=== PATIENT | female | born 1960 | race Caucasian/White ===

== ENCOUNTER 2018-06-03 16:13 | Inpatient (IN) | payer BC ==
[~2018-06-03] VITALS: Ht 167.6 cm; Wt 102.1 kg
[~2018-06-03 16:13] MED LIST: ASPI81TA31 PO; ATOR20TA PO; Acetaminophen PO; Glipizide PO; LEVO137T24 PO; LOSA1TAB39 PO; Metformin Hcl PO; SITA50TA PO
[2018-06-03] MEDS ORDERED: CARVEDILOL 12.5 MG TABLET (16:33)
[2018-06-03] MEDS ORDERED: LEVOTHYROXINE 100 MCG TABLET (16:33)
[2018-06-03] MEDS ORDERED: GLIPIZIDE 5 MG TABLET (16:33)
[2018-06-03] MEDS ORDERED: PANT40TA4 PO (16:33)
[2018-06-03] MEDS ORDERED: GLIP10TA11 PO (16:33)
[2018-06-03] MEDS ORDERED: REPA1TAB PO (16:33)
[2018-06-03] MEDS ORDERED: METF850T PO (16:36)
[2018-06-03] MEDS ORDERED: CLONIDINE HCL 0.2 MG TABLET PO ONE (17:00)
[2018-06-03 17:06] LABS: BASOPHILS # (AUTO) 0.1 K/uL (0.0-8.0); BASOPHILS % (AUTO) 0.8 % (0.0-2.0); EOSINOPHILS # (AUTO) 0.3 K/uL (0.0-0.7); EOSINOPHILS % (AUTO) 3.2 % (0.0-7.0); HEMATOCRIT 38.2 % (31.2-41.9); HEMOGLOBIN 12.9 g/dL (10.9-14.3); LYMPHOCYTES # (AUTO) 3.3 K/uL (20.0-40.0); MEAN CORPUSCULAR HEMOGLOBIN 31.4 uug (24.7-32.8); MEAN CORPUSCULAR HGB CONC 34 g/dL (32.3-35.6); MEAN CORPUSCULAR VOLUME 93.2 fL (75.5-95.3); MONOCYTES # (AUTO) 0.8 K/uL (2.0-10.0); NEUTROPHILS # (AUTO) 5.3 K/uL (1.8-8.9); PLATELET COUNT (AUTO) 288 K/uL (179-408); WHITE BLOOD COUNT (AUTO) 9.8 K/uL (3.8-11.8)
[2018-06-03 17:12] LABS: CREATININE 1.1 mg/dL (0.6-1.3)
[2018-06-03] MEDS ORDERED: CLONIDINE HCL 0.2 MG TABLET ONE (17:14)
--- NOTE | 2018-06-03 17:23 | NUR ---
Pt out of Er for ct.
--- NOTE | 2018-06-03 17:35 | NUR ---
Pt denies chest pain and shortness of breath. Md at the bedside re-evaluating the pt.
--- NOTE | 2018-06-03 17:35 | NUR ---
Pt back from Ct.
[2018-06-03] MEDS ORDERED: ASPIRIN 325 MG TABLET ONE (17:59)
[2018-06-03] MEDS ORDERED: ASPIRIN 325 MG TABLET PO ONE (18:00)
--- NOTE | 2018-06-03 18:20 | NUR ---
spoke to Jeannie(case Manger from [employer]), and she providd authorization # for Pt admit.
--- NOTE | 2018-06-03 18:45 | NUR ---
Received pt from ER. Pt is alert and oriented times 4, states no pain and verbalizes she came to the hospital for high blood pressure and her blood sugar. VS taken and logged by CONSUMER RECRUITER. Personal belonging accounted and verified with CONSUMER RECRUITER. Pt has $165 dollars accounted for and verified with a second RN, money was placed in the safe and signed off by the correction officer supervisor. Tele-monitored placed on, pt is SR with a HR of 80. restrictive preparation operator nurse aware that Dr needs to be alerted of patient's arrival to the tele floor.
[2018-06-03 19:01] VITALS: BP 152/46
--- NOTE | 2018-06-03 19:15 | NUR ---
Received pt at bedside under care of MD Yee. Report receieved from day shif nurse. Pt awake, alert and oriented x4. Tele SR with HR 80. BP 152/48, O2 sat 96% RA. Pt has no complaints of pain at this time. Pertinent assessments and unit orientation done. Safety precautions and comfort measures implemented. Bed on low locked position, call light within reach. Will monitor closely.
[2018-06-03] MEDS ORDERED: ONDANSETRON 4 MG/2 ML VIAL IV PRN (20:30)
[2018-06-03] MEDS ORDERED: Z GUARD REMEDY PASTE 57 GM TUBE TOP PRN (20:30)
[2018-06-03] MEDS ORDERED: NITROGLYCERIN OINT 1 GM PACKET TP ONE (20:30)
[2018-06-03] MEDS ORDERED: ACETAMINOPHEN 325 MG TABLET PO PRN (20:30)
[2018-06-03 20:33] VITALS: BP 135/64
--- NOTE | 2018-06-03 21:00 | NUR ---
EKG order done. Resulted in ST elevation and prolonged QT segment. Raised HOB to 45 degrees and administered 2L NC. O2 sat 98%. BP 135/64. HR 77. Pt denies chest pain or SOB. Troponin levels WNL. aware. No new orders at this time. Will continue to monitor pt closely.
--- NOTE | 2018-06-03 22:00 | NUR ---
Pt awake, sitting up in bed. BP 129/47. O2 sat 99% via 2L NC. RR 18. Tele noted SR with ST depression and inverted T wave. Pt denies chest pain, headache, or SOB. MD aware. Will continue to monitor.
[2018-06-03] MEDS: CARVEDILOL 6.25 MG TABLET PO SCH (22:30)
[2018-06-04 00:29] VITALS: BP 127/66
[2018-06-04 05:30] VITALS: BP 119/63
[2018-06-04 06:10] LABS: BASOPHILS % (AUTO) 0.6 % (0.0-2.0); EOSINOPHILS # (AUTO) 0.2 K/uL (0.0-0.7); EOSINOPHILS % (AUTO) 3.4 % (0.0-7.0); HEMATOCRIT 33.9 % (31.2-41.9); HEMOGLOBIN 11.5 g/dL (10.9-14.3); LYMPHOCYTES # (AUTO) 3.1 K/uL (20.0-40.0); MEAN CORPUSCULAR HEMOGLOBIN 31.7 uug (24.7-32.8); MEAN CORPUSCULAR HGB CONC 34 g/dL (32.3-35.6); MEAN CORPUSCULAR VOLUME 93.6 fL (75.5-95.3); MONOCYTES # (AUTO) 0.5 K/uL (2.0-10.0); MONOCYTES % (AUTO) 7.6 % (0.0-11.0); NEUTROPHILS # (AUTO) 2.9 K/uL (1.8-8.9); NEUTROPHILS % (AUTO) 42.4 % (38.5-71.5); PLATELET COUNT (AUTO) 251 K/uL (179-408); RED BLOOD CELL COUNT(AUTO) 3.62 MIL/uL (3.63-4.92); WHITE BLOOD COUNT (AUTO) 6.8 K/uL (3.8-11.8)
[2018-06-04 06:44] LABS: BILIRUBIN,TOTAL 0.5 mg/dL (0.2-1.0); CREATININE 1.1 mg/dL (0.6-1.3); MAGNESIUM 1.8 mg/dL (1.8-2.4); PHOSPHOROUS 3.8 mg/dL (2.5-4.9); TOTAL PROTEIN, SERUM 6.6 g/dL (6.4-8.2)
--- NOTE | 2018-06-04 06:53 | NUR ---
Pt slept well throughout the night. Pt AxO x4. Tele noted to be SR with inverted T waves and a HR of 68. O2 sat 99% with 2L NC. Pt has no complaints of pain, SOB or severe headache at this time. Pt has no s/s of acute distress. Monitored closely during the shift. Will endorse plan of care to upcoming nurse.
[2018-06-04] MEDS ORDERED: LEVOTHYROXINE SODIUM 100 MCG TABLET PO SCH (07:00)
[2018-06-04] MEDS ORDERED: glipiZIDE 10 MG TABLET PO SCH (07:00)
[2018-06-04] MEDS ORDERED: REPAGLINIDE 1 MG TABLET PO SCH (08:00)
--- NOTE | 2018-06-04 08:00 | NUR ---
AWAKE ALERT AND ORIENTED X3 WITH O2 AT 2L NC SATURATING 97% DENIES PAIN OR SOB. LESS BURRING LEYE PRESENTED BY PATIENT. SR ON MONITOR WITH T-WAVE INVERSION. CLOSELY MONITORED
[2018-06-04 08:35] VITALS: BP 127/70
[2018-06-04] MEDS: CARVEDILOL 6.25 MG TABLET PO SCH ×2 (08:38→17:19)
[2018-06-04] MEDS ORDERED: LOSARTAN POTASSIUM 50 MG TABLET PO SCH (09:00)
[2018-06-04] MEDS ORDERED: ASPIRIN 81 MG TAB.CHEW PO SCH (09:00)
[2018-06-04 10:36] LABS: THYROID STIMULATING HORMONE 9.582 mIU/mL (0.358-3.740)
--- NOTE | 2018-06-04 12:00 | NUR ---
CONTINUE CURRENT TX PLAN RESTING IN BED MOST OF THE TIME DENIES PAIN. SEEN BY HOSPITALIST SEE NOTES
[2018-06-04 12:05] VITALS: BP 142/70
[2018-06-04 16:10] VITALS: BP 131/63
--- NOTE | 2018-06-04 16:23 | NUR ---
SEEN BY DR BOSTON POSTING MACHINE OPERATOR SEE NOTES. DENIES PAIN OR SOB, PER PATIENT LESS BLURRING OF VISION LEFT EYE. REMAINS SR ON MONITOR
--- NOTE | 2018-06-04 16:41 | NUR ---
SEEN BY DR BOSTON RECOMMEND TRANSFER TO [facility]. VIDEO GAME CREATOR SPOKE WITH PATIENT FOR TRANSFER ARRANGEMENT STILL WAITNG FOR BED AVAILABILITY
[2018-06-04] MEDS ORDERED: glipiZIDE 5 MG TABLET PO SCH (18:00)
--- NOTE | 2018-06-04 19:39 | NUR ---
Pt observed to be alert and oriented x 3, in no acute distress. Tele sinus rhythm with inverted T waves with 75 HR. Pt made aware of plan of care and possible transfer tonight. Safe environment implemented. Call light within reach.
[2018-06-04 20:20] VITALS: BP 128/52
[2018-06-05] VITALS: BP 121/58
--- NOTE | 2018-06-05 00:30 | NUR ---
Report given to receiving RN in [place]. Pt made aware of plan of care. Kept NPO after midnight. All belongings (valuables, medications) returned to patient. Pertinent education provided to pt. Awaiting paramedics to arrive at this time.
--- NOTE | 2018-06-05 03:32 | NUR ---
Report given to paramedics. Tele noted to be sinus rhythm t wave inversion. No s/s of acute distress noted at this time.
--- NOTE | 2018-06-05 03:36 | NUR ---
Pt transferred to [place] in stable condition. All needs attended to.
[2018-06-05] MEDS ORDERED: LEVOTHYROXINE SODIUM 100 MCG TABLET PO SCH (07:00)
[2018-06-05] MEDS ORDERED: LEVOTHYROXINE SODIUM 125 MCG TABLET PO SCH (07:00)
[2018-06-05] MEDS ORDERED: ASPIRIN 325 MG TABLET PO SCH (09:00)
[2018-06-05] MEDS ORDERED: ASPIRIN 81 MG TAB.CHEW PO SCH (09:00)
== END 2018-06-05 03:33 | disposition short-term general hospital (02) | DRG 281 ==
LOC: ER 16:15 → TELE 18:27
PROVIDERS: ADMIT Internal Medicine; ATTEND Internal Medicine
DX: I16.1 Hypertensive emergency (principal); I21.A1 Myocardial infarction type 2; I25.110 Atherosclerotic heart disease of native coronary artery with unstable angina pectoris; I11.9 Hypertensive heart disease without heart failure; Z87.891 Personal history of nicotine dependence; K21.9 Gastro-esophageal reflux disease without esophagitis; E78.5 Hyperlipidemia, unspecified; E03.9 Hypothyroidism, unspecified; Z83.3 Family history of diabetes mellitus; Z79.84 Long term (current) use of oral hypoglycemic drugs; E11.65 Type 2 diabetes mellitus with hyperglycemia; H53.8 Other visual disturbances
CPT/HCPCS: 36415; 70030-TC; 70450; 71045; 83735; 84100; 84443; 85025; 93005; 93307; A4663; G0378